=== PATIENT | male | born 1995 | race Two or more races ===

== ENCOUNTER 2025-09-21 18:55 | Emergency (ER) | payer OTHER ==
[~2025-09-21] VITALS: Ht 175.3 cm; Wt 105.2 kg
[2025-09-21 19:42] VITALS: BP 138/71; O2SAT 99
[2025-09-21] MEDS ORDERED: METHYLPREDNISOLONE SOD SUCC 125 MG VIAL IV STA (19:52)
[2025-09-21] MEDS ORDERED: 0.9 % SODIUM CHLORIDE 1,000 ML IV SCH (20:00)
[2025-09-21] MEDS ORDERED: LEVALBUTEROL HCL 0.63 MG/3 ML SOLUTION IH SCH (20:00)
[2025-09-21] MEDS ORDERED: IPRATROPIUM BROMIDE 0.5 MG/2.5 ML AMPUL.NEB IH SCH (20:00)
[2025-09-21] MEDS ORDERED: METHYLPREDNISOLONE SOD SUCC 125 MG VIAL ONE (20:07)
[2025-09-21] MEDS ORDERED: IPRATROPIUM BROMIDE 0.5 MG/2.5 ML AMPUL.NEB IH ONE (20:24)
[2025-09-21] MEDS ORDERED: LEVALBUTEROL HCL 1.25 MG/3 ML SOLUTION IH ONE (20:24)
[2025-09-21 21:10] LABS: BASO % 0.4 % (0.1-1.2); EOS # 0.48 (0.04-0.54); EOS % 4.9 % (0.7-7.0); LYMPH # 2.61 (1.18-3.74); LYMPH % 26.8 % (19.3-53.1); MEAN PLATELET VOLUME 9.40 fl (9.4-12.4); MONO # 0.87 (0.24-0.82); MONO % 8.9 % (4.7-12.5); NEUT # 5.72 (1.56-6.13); NEUT % 58.9 % (34.0-71.1); RED CELL DISTRIBUTION WIDTH 12.4 % (11.6-14.4)
[2025-09-21 21:22] LABS: ERYTHROCYTE SEDIMENTATION RATE 7 mm/hr (0-15)
[2025-09-21 21:36] LABS: COVID-19 AG NEGATIVE (NEGATIVE)
[2025-09-21 21:40] LABS: INR 0.98
[2025-09-21 21:49] LABS: ALT/SGPT 38.0 U/L (12-78); AST/SGOT 20.0 U/L (15-37); BILIRUBIN TOTAL 0.34 mg/dL (0.3-1.2); BUN CREA RATIO 14.0 (7.0-25.0); CREATININE SERUM 0.9 mg/dL (0.70-1.30); GFR 98.42; GLOBULINA 3.9 G/DL (2.4-3.5); GLUCOSE FASTING 95.0 mg/dL (65-100); OSMOLALITY SERUM 279.0 MOSM/KG (275-295)
[2025-09-21] MEDS ORDERED: MAGNESIUM SULFATE IN WATER 50 ML IV ONE (22:15)
[2025-09-21] MEDS ORDERED: MAGNESIUM SULFATE 50% 1,000 MG/2 ML VIAL ONE (22:57)
[2025-09-22] MEDS ORDERED: ZYRTEC10 M3 PO (00:13)
[2025-09-22] MEDS ORDERED: MEDROLPACK PO (00:13)
[2025-09-22] MEDS ORDERED: ZITHROMAX500 MG PO (00:13)
[2025-09-22] MEDS ORDERED: ALBUTEROL2.5 MG/3 M IH (00:13)
[2025-09-22] MEDS ORDERED: BUDESONIDE0.5 MG/2 M IH (00:13)
== END 2025-09-22 01:56 | disposition home or self-care (01) ==
LOC: ER 18:56
PROVIDERS: Physician Assistant Medical
DX: J45.901 Unspecified asthma with (acute) exacerbation (principal); F17.210 Nicotine dependence, cigarettes, uncomplicated; Z91.013 Allergy to seafood